=== PATIENT | female | born 1935 | race Caucasian/White ===

== ENCOUNTER 2022-02-20 14:46 | Observation (INO) | payer MEDICARE, SELFPAY ==
[2022-02-20] VITALS (31 sets, daily range): BP systolic 140–179; BP diastolic 77–97; PULSE 80–98; RESP 13–18; TEMP 36.4–37.4; O2SAT 95–99; BMI 19.1; BMI 19.7
--- NOTE | 2022-02-20 14:58 | HMH.EDGENADL ---
ED Disposition Clinical Impression: Symptomatic anemia Disposition: Admitted as Observation Condition on Discharge: Good Referrals: Betty Martinez [Primary Care Provider] - - Critical Care Critical Care Time: No Attestation: On , the high probability of a clinically significant, sudden or life threatening deterioration of the following system(s) required my full and direct attention, intervention and personal management. The time I documented below is in addition to time spent performing reported procedures but includes the following listed in this critical care notation. Medical Decision Making - Medical Records Medical records reviewed: Yes: I reviewed the patient's medical records. - Devang Inquiry Pt receiving controlled substance: No Vital Signs: 02/20/22 14:46 Pulse Rate [Left Radial] 97 H Respiratory Rate 13 Blood Pressure [Right Arm] 161/90 H Blood Pressure Mean [Right Arm] 113 Blood Pressure Source [Right Arm] Automatic Cuff Blood Pressure Position [Right Arm] Sitting 02 Sat by Pulse Oximetry 98 Oxygen Delivery Method Room Air - Lab Data Lab Results 02/20/22 15:01: Stool Occult Blood Negative 02/20/22 15:15: WBC 10.1, RBC 2.38 L, Hgb 6.4 L*, Hct 21.1 L, MCV 88.6, MCH 27.0, MCHC 30.5 L, RDW 17.2, Plt Count 420, MPV 8.3, Neut % (Auto) 33.0 L, Lymph % (Auto) 57.4 H, [place] % (Auto) 5.1, Eos % (Auto) 3.7, Baso % (Auto) 0.8, Neut # (Auto) 3.3, Lymph # (Auto) 5.8 H, [place] # (Auto) 0.5, Eos # (Auto) 0.4, Baso # (Auto) 0.1 Result diagrams: 02/20/22 15:15 Orders (Tests/Meds): ED MEDICATIONS Generic Name Dose Route Start Last Admin Trade Name Freq PRN Reason Stop Dose Admin Sodium Chloride 250 mls @ 25 mls/hr 02/20/22 15:45 Sod Chlor 0.9% 250ml Bag IV 02/21/22 15:44 .Q10H JAZ Sodium Chloride 10 ml 02/20/22 15:31 Sodium Chloride 0.9% 10ml Flush Syringe IV 03/22/22 15:30 NEEDED PRN Maintain IV Site Discontinued Medications Generic Name Dose Route Start Last Admin Trade Name Mary PRN Reason Stop Dose Admin Furosemide 10 mg 02/20/22 15:43 Furosemide 20 Mg/2 Ml Vial IV 02/20/22 15:44 ONCE ONE ORDERS Category Date Time Status PRBC [Red Blood Cells] Stat BBK 02/20/22 15:43 Ordered Type and Screen Stat BBK 02/20/22 15:43 Ordered CMP [Comprehensive Metabolic Panel] Stat Lab 02/20/22 15:15 Received Complete Blood Count Auto Diff Stat Lab 02/20/22 15:15 Results - Physician Consults Time: 15:47 (Dr Quezada accepts obs here) General Adult HPI - General Stated complaint: Abnormal labs Time Seen by Provider: 02/20/22 15:02 - History of Present Illness HPI narrative: sent by PCP for abn low hgb outpt lab, pt c/o general fatigue and weakness for several months Onset (ago): month(s) Radiation: non-radiation Severity: mild Consistency: constant Relieving factors: none Exacerbating factors: none Associated symptoms: denies other symptoms - Related Data Home Medications Medication Instructions Recorded Confirmed carbidopa 25 mg-levodopa 100 mg PO tab 12/12/18 05/04/21 tablet lorazepam 0.5 mg tablet PO tab 12/12/18 05/04/21 aspirin 81 mg tablet,delayed 81 mg PO DAILY 05/04/21 05/04/21 release tramadol 50 mg tablet 50 mg PO DAILY 05/04/21 05/04/21 Allergies Allergy/AdvReac Type Severity Reaction Status Date / Time No Known Allergies Allergy Verified 05/04/21 09:42 [facility] History - Hepatitis A Screen Attestation statement:: This patient has been screened for Hepatitis A risk factors. Other Medical History: Reports: Arthritis, Other Comment: Parkinsons and neuropathy Other Surgeries: Yes: Colonoscopy - Social History Smoking Status: Never smoker Alcohol Intake: never Occupational Status: retired Family Hx:: Heart Attack, Other, Cancer ROS Obtained: Yes All systems reviewed & no additional complaints Physical Exam - General General appearance: alert, in no apparent distress - Head Hea
--- NOTE | 2022-02-20 14:59 | PC.NURSE ---
ERMD in room
[2022-02-20 15:28] LABS: Occult Blood,Stool Negative (Negative)
[2022-02-20 15:31] LABS: Basophils # 0.1 K/mm3 (0-0.2); Basophils % 0.8 % (0.1-2.0); Eosinophils # 0.4 K/mm3 (0.0-0.4); Eosinophils % 3.7 % (0.1-12.0); Hematocrit 21.1 % (37.0-47.0); Lymphocytes # 5.8 K/mm3 (0.7-4.5); Lymphocytes % 57.4 % (10-50); Mean Corpuscular HGB Conc 30.5 g/dL (31.8-35.4); Mean Corpuscular Volume 88.6 fl (81-99); Mean Platelet Volume 8.3 fl (7.4-10.4); Monocytes # 0.5 K/mm3 (0.1-1.0); Monocytes % 5.1 % (1.7-9.3); Neutrophils # 3.3 K/mm3 (1.8-7.8); Platelet Count 420 K/mm3 (142-424); Red Blood Count 2.38 M/mm3 (4.20-5.40); Red Cell Distribution Width 17.2 % (11.5-17.5); White Blood Count 10.1 K/mm3 (4.8-10.8)
[2022-02-20 15:34] LABS: Hemoglobin 6.4 g/dL (12.2-16.2)
[2022-02-20 15:35] LABS: MANUAL DIFFERENTIAL MANUAL DIFFERENTIAL (MANUAL DIFF)
--- NOTE | 2022-02-20 15:35 | PC.NURSE ---
pt hemoglobin 6.4, MD aware
--- NOTE | 2022-02-20 15:37 | PC.NURSE ---
Paged service (Dr. Quezada) for TIP DE DIOS.
--- NOTE | 2022-02-20 15:38 | PC.NURSE ---
speaking with Dr Quezada at this time.
[2022-02-20 15:50] LABS: Alanine Aminotransferase 9 U/L (12-78); Albumin Level 3.7 g/dl (3.5-5.0); Alkaline Phosphatase 112 U/L (38-126); Anion Gap 4.2 mEq/L (5-15); Aspartate Amino Transferase 38 U/L (14-36); Blood Urea Nitrogen 25 mg/dl (7-17); Calcium 9.2 mg/dl (8.4-10.2); Carbon Dioxide 29 mmol/L (22.0-30.0); Chloride 103 mmol/L (98-107); Creatinine Clearance Estimated 32 mL/min (50-200); Estimated Glomerular Filt Rate 53 ml/min (>60); GFR (African American) 64 ML/MIN (>60); Glucose 110 mg/dl (74-100); Potassium 4.2 mmoL/L (3.5-5.1); Sodium 132 mmol/L (136-145)
[2022-02-20 15:57] LABS: Albumin/Globulin Ratio 0.4 (1.1-1.8); Bilirubin,Total < 0.1 mg/dl (0.2-1.3); Globulin 8.7 g/dL (1.3-3.2); Total Protein,Serum 12.4 g/dl (6.3-8.2)
[2022-02-20 16:07] LABS: Lymphocytes % 62 % (10-50); Monocytes % 2 % (2-9); Neutrophils % 36 % (42-76); Platelet Estimate Normal; Total Cells Counted 100
[2022-02-20 16:08] LABS: Hypochromasia 2+
--- NOTE | 2022-02-20 16:38 | PC.NURSE ---
pt ambulated to restroom
--- NOTE | 2022-02-20 16:44 | PC.NURSE ---
gave pt a warm blanket no other needs
--- NOTE | 2022-02-20 16:49 | PC.NURSE ---
LAb called with ready blood product
--- NOTE | 2022-02-20 16:50 | PC.NURSE ---
HS at nursing station and asked if she could get the blood product from that lab that was ready due to my unavailability at the time. HS stated that she would.
--- NOTE | 2022-02-20 17:09 | PC.NURSE ---
POA at bs and blood consent signed and on chart
--- NOTE | 2022-02-20 17:10 | PC.NURSE ---
HS told a nurse at the nursing station that she could not get the blood for the pt at this time due to an outpt who arrived for his outpt tx.
--- NOTE | 2022-02-20 17:13 | PC.NURSE ---
pt ambulating back and forth to restroom to stretcher
--- NOTE | 2022-02-20 17:15 | PC.NURSE ---
Charity sent to the lab to get blood product for pt
--- NOTE | 2022-02-20 17:20 | PC.NURSE ---
pt assisted to the restroom with walker, tolerated well
--- NOTE | 2022-02-20 17:50 | PC.NURSE ---
PT denies any issues at this time. VSS during start of blood administration. Will continue to monitor
[2022-02-20 18:45] LABS: Coronavirus 19, PCR Not Detected (NotDetected); Influenza A, PCR Not Detected (NotDetected); Influenza B, PCR Not Detected (NotDetected)
--- NOTE | 2022-02-20 19:32 | PC.NURSE ---
report called to Perla RODRIGUEZ
--- NOTE | 2022-02-20 20:05 | PC.NURSE ---
pt arrived via wheel chair to the floor at this time
[2022-02-21 00:45] VITALS: BP 142/69; PULSE 85; RESP 15; TEMP 36.6; O2SAT 97
[2022-02-21 00:45] LABS: Hemoglobin 8.5 g/dL (12.2-16.2)
[2022-02-21 00:46] LABS: Hematocrit 27.5 % (37.0-47.0)
[2022-02-21 03:40] VITALS: BMI 20.7
[2022-02-21 03:41] VITALS: BP 139/87; PULSE 78; RESP 16; TEMP 36.4; O2SAT 96
--- NOTE | 2022-02-21 04:34 | PC.NURSE ---
PT HAS RESTED INTERMITTENTLY THIS SHIFT. LUNG SOUNDS ARE CLEAR BILATERALLY AND TOLERATING ROOM AIR WELL. AMBULATING TO BATHROOM WITH ASSIST X1. RECEIVED 2 UNITS OF PRBC'S OVER NIGHT AND TOLERATED WELL. NO SIGNS OR SYMPTOMS OF TRANSFUSION REACTION. THIS AM PT STATES THAT SHE FEELS LIKE THE BLOOD HAS HELPED AND SHE FEELS BETTER. VSS. CALL REYNOLDS WITH IN REACH.
[2022-02-21 07:23] LABS: Basophils # 0.1 K/mm3 (0-0.2); Basophils % 0.7 % (0.1-2.0); Eosinophils # 0.4 K/mm3 (0.0-0.4); Eosinophils % 5.9 % (0.1-12.0); Hematocrit 28.9 % (37.0-47.0); Lymphocytes # 2.6 K/mm3 (0.7-4.5); Lymphocytes % 39.2 % (10-50); Mean Corpuscular HGB Conc 31.3 g/dL (31.8-35.4); Mean Corpuscular Hemoglobin 27.3 pg (27.0-31.2); Mean Corpuscular Volume 87.2 fl (81-99); Mean Platelet Volume 7.6 fl (7.4-10.4); Monocytes # 0.5 K/mm3 (0.1-1.0); Monocytes % 7.4 % (1.7-9.3); Neutrophils # 3.1 K/mm3 (1.8-7.8); Neutrophils % 46.8 % (37.0-80.0); Platelet Count 358 K/mm3 (142-424); Red Blood Count 3.32 M/mm3 (4.20-5.40); White Blood Count 6.7 K/mm3 (4.8-10.8)
[2022-02-21 07:28] LABS: Chloride 105 mmol/L (98-107)
[2022-02-21 07:29] LABS: Potassium 3.6 mmoL/L (3.5-5.1); Sodium 134 mmol/L (136-145)
[2022-02-21 07:31] LABS: Blood Urea Nitrogen 24 mg/dl (7-17); Creatinine Clearance Estimated 34 mL/min (50-200); Estimated Glomerular Filt Rate 60 ml/min (>60); GFR (African American) 72 ML/MIN (>60)
[2022-02-21 07:32] LABS: Alanine Aminotransferase 8 U/L (12-78); Albumin Level 3.6 g/dl (3.5-5.0); Alkaline Phosphatase 105 U/L (38-126); Anion Gap 3.6 mEq/L (5-15); Aspartate Amino Transferase 39 U/L (14-36); Carbon Dioxide 29 mmol/L (22.0-30.0); Glucose 106 mg/dl (74-100)
[2022-02-21 07:35] VITALS: BP 145/80; PULSE 80; RESP 18; TEMP 36.6; O2SAT 95
[2022-02-21 07:49] LABS: Albumin/Globulin Ratio 0.4 (1.1-1.8); Bilirubin,Total < 0.1 mg/dl (0.2-1.3); Globulin 8.3 g/dL (1.3-3.2); Total Protein,Serum 11.9 g/dl (6.3-8.2)
--- NOTE | 2022-02-21 08:03 | HMH.PHAVTE ---
[facility] Pharmacy VTE Monitoring - Patient Demographics Admission date: 02/20/22 Report Date: 02/21/22 Time: 08:03 Allergies/Adverse Reactions: Patient Allergies No Known Allergies Allergy (Verified 05/04/21 09:42) Height: 1.6 m Weight: 53.127 kg Patient Problems: Current Active Problems Symptomatic anemia (Acute) - VTE Risk Labs: VTE Related Lab Results Hgb 9.0 g/dL (12.2-16.2) L 02/21/22 06:38 Hct 28.9 % (37.0-47.0) L 02/21/22 06:38 Plt Count 358 K/mm3 (142-424) 02/21/22 06:38 BUN 24 mg/dl (7-17) H 02/21/22 06:38 Creatinine 0.90 mg/dl (0.52-1.04) 02/21/22 06:38 Estimated Creat Clear 34 mL/min (50-200) 02/21/22 06:38 Was VTE Risk Assessment Performed: Yes VTE Score: 7 VTE Risk Level: Moderate Risk - Prophylaxis VTE Prophylaxis Ordered?: Yes Types of VTE Prophylaxis: TEDS Knee High Location of Applied Device: Bilateral Lower Extremeties
--- NOTE | 2022-02-21 08:06 | HMH.PHAINT ---
MEDICATION RECONCILIATION COMPLETED ON PATIENT USING EXTERNAL FILL HISTORY FROM PHARMACY. -MIROSLAVA GUTIERREZ, MANJINDERD
--- NOTE | 2022-02-21 08:22 | HMH.HPDC ---
General - General Admission date:: 02/20/22 Discharge date: 02/21/22 *Admission Date: 02/20/22 *Chief complaint: anemia *History of present illness: Ms. Schrader is a pleasant female with recent diagnosis of anemia in November. Has been worked up by her PCP with colonoscopy. Had transverse colon resected due to concern for cancer that turned out to be benign. Was started on iron supplementation but intolerant due to upsetting her stomach. Had labs drawn this past week which showed anemia and she was informed to come to [facility] for further management transfusion. Work-up in the ER, noted to have hemoglobin of 6.4. Complains of fatigue but no shortness of breath, chest pain, nausea, vomiting, melenic stools, hematochezia. Stable on room air. Remainder of labs unremarkable. Admitted to medicine for treatment of her symptomatic anemia. She received 2 units of packed red blood cells overnight. Responded well with hemoglobin above 9 this morning. On evaluation this morning she states she feels better, has improved energy and color. Daughter at bedside thinks she is doing better as well. [facility] History I have reviewed the patient's past medical history: Yes Medical History: Reports:: Hyperlipidemia, Hypertension Denies:: Diabetes Mellitus Type 1, Diabetes Mellitus Type 2 *Have you ever received a pneumonia vaccine?: Yes *Have you received a flu vaccine this season?: Yes Other Medical History: Reports: Anemia, Arthritis, Glaucoma, Other Laterality Cases: Bilateral: Tonsillectomy Other Surgeries: Yes: Colonoscopy, Colon Resection - *Social History Last grade of school completed: Advanced degree Smoking Status: Never smoker Alcohol Intake: never *Occupational Status:: retired *Travel in the last 8 weeks: None Family Hx:: Cancer, Hyperlipidemia, Hypertension Review of Systems - Review of Systems Review of systems:: pertinent systems reviewed and negative unless documented below (14 point review of systems performed, pertinent positives and negatives as per HPI) Exam Vital signs and Labs for Last 24 Hours: Temp Pulse Resp BP Pulse Ox 97.8 F 80 18 145/80 H 95 02/21/22 07:35 02/21/22 07:35 02/21/22 07:35 02/21/22 07:35 02/21/22 07:35 Laboratory Results - last 24 hr 02/20/22 15:01: Stool Occult Blood Negative 02/20/22 15:15: WBC 10.1, RBC 2.38 L, Hgb 6.4 L*, Hct 21.1 L, MCV 88.6, MCH 27.0, MCHC 30.5 L, RDW 17.2, Plt Count 420, MPV 8.3, Neut % (Auto) 33.0 L, Lymph % (Auto) 57.4 H, [place] % (Auto) 5.1, Eos % (Auto) 3.7, Baso % (Auto) 0.8, Neut # (Auto) 3.3, Lymph # (Auto) 5.8 H, [place] # (Auto) 0.5, Eos # (Auto) 0.4, Baso # (Auto) 0.1, Total Counted 100, Neutrophils % (Manual) 36 L, Lymphocytes % (Manual) 62 H, Monocytes % (Manual) 2, Platelet Estimate Normal, Hypochromasia 2+ 02/20/22 15:15: Sodium 132 L, Potassium 4.2, Chloride 103, Carbon Dioxide 29, Anion Gap 4.2 L, BUN 25 H, Creatinine 1.00, Estimated Creat Clear 32, Estimated GFR 53 L, Est GFR ( Amer) 64, Glucose 110 H, Calcium 9.2, Total Bilirubin < 0.1 L, AST 38 H, ALT 9 L, Alkaline Phosphatase 112, Total Protein 12.4 H, Albumin 3.7, Globulin 8.7 H, Albumin/Globulin Ratio 0.4 L 02/20/22 15:15: Blood Type A Positive, Antibody Screen Negative, Crossmatch (AHG) See Detail 02/20/22 16:20: Blood Type Confirm A Positive 02/20/22 18:38: SARS-CoV-2 (PCR) Not detected, Influenza A Untype (PCR) Not detected, Influenza Type B (PCR) Not detected 02/21/22 00:35: Hgb 8.5 L D, Hct 27.5 L 02/21/22 06:38: WBC 6.7 D, RBC 3.32 L D, Hgb 9.0 L, Hct 28.9 L, MCV 87.2, MCH 27.3, MCHC 31.3 L, RDW 17.0, Plt Count 358, MPV 7.6, Neut % (Auto) 46.8, Lymph % (Auto) 39.2, [place] % (Auto) 7.4, Eos % (Auto) 5.9, Baso % (Auto) 0.7, Neut # (Auto) 3.1, Lymph # (Auto) 2.6, [place] # (Auto) 0.5, Eos # (Auto) 0.4, Baso # (Auto) 0.1 02/21/22 06:38: Sodium 134 L, Potassium 3.6, Chloride 105, Carbon Dioxide 29, Anion Gap 3.6 L, BUN 24 H, Creatinine 0.90, Estimated Creat Clear 34, Estimated GFR 60, Est GFR
--- NOTE | 2022-02-21 10:37 | PC.NURSE ---
pt has been discahrged form the hospital via wheelchair with daughter. Saline Lock discontinued. Home meds given to pt and educated on discharge and follow up.
--- NOTE | 2022-02-22 15:15 | CARE MANAGER ---
Attempted post-discharge phone interview, there are no working numbers listed on patient demographics.
== END 2022-02-21 10:25 | disposition home or self-care (01) ==
LOC: ER 17:41 → 2ND 18:00
PROVIDERS: Admitting Provider Internal Medicine Adolescent Medicine; Emergency Provider Emergency Medicine; PCP Family Medicine; Visit Provider Internal Medicine Adolescent Medicine
DX: D64.9 Anemia, unspecified (principal); I10 Essential (primary) hypertension; E78.5 Hyperlipidemia, unspecified; G20 Parkinson's disease; Z86.73 Personal history of transient ischemic attack (TIA), and cerebral infarction without residual deficits; G62.9 Polyneuropathy, unspecified; F02.80 Dementia in other diseases classified elsewhere, unspecified severity, without behavioral disturbance, psychotic disturbance, mood disturbance, and anxiety; Z20.822 Contact with and (suspected) exposure to COVID-19
CPT/HCPCS: G0378; 36415; 80053; 82272; 85007; 85014; 85018; 85025; 86850; 99285; C9803; G0328; P9016; U0003; U0005